=== PATIENT | male | born 1990 | race Caucasian/White ===

== ENCOUNTER 2020-09-19 22:05 | Emergency (ER) | payer MEDICAID, SELFPAY ==
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
--- NOTE | 2020-09-19 22:06 | PC.NURSE ---
back board removed. CXR done in room. C-collar remains in place. SL placed in (R) AC. 2nd liter of IVF started. ST on the monitor with strong pulse. will take to CT. respiratory therapist bagging patient. ok to put on vent per .
--- NOTE | 2020-09-19 22:10 | PC.NURSE ---
PEA on monitor. HR 120 but no carotid or femoral pulse per Dr. Herrera. CPR started. EPI given x 1. SL placed in (R) hand. 3rd liter of fluid started. BP 58/40. blood bank notified. [facility] staff in room. will attempt to fly patient to trauma center. Dr. Charles and Dr. Herrera present.
--- NOTE | 2020-09-19 22:12 | PC.NURSE ---
pulse check. ST 120's with 2+ pulse. ROSC achieved. BP 188/100. [facility] in room. patient prepared for transport. Dr. Herrera speaking with [facility].
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
[2020-09-19 22:21] LABS: Alveolar/Arterial O2 Gradient 478.5 mmHg; Base Excess ABG -12.4 mEq/l (+/-2.0); Carboxyhemoglobin 0.3 % THb (0-2.0); Fractional Inspired Oxygen 100 %; HCO3 ABG 20.2 mEq/l (22.0-26.0); Methemoglobin ABG 0.4 %THb (0-1.5); Oxygen Content ABG 18.3 %vol (16.0-22.0); Oxygen Saturation ABG 97.6 % (95.0-100.0); Oxyhemoglobin 96.6 % THb (90.0-100.0); PO2 ABG 151.2 mmHg (80.0-100.0); PO2 FiO2 Ratio Arterial Blood 1.51 %; Reduced Hemoglobin 2.7 %THb (0-5.0); Total Hemoglobin 13.3 g/dL (12.0-18.0)
[2020-09-19 22:22] LABS: pH ABG 7.003 (7.350-7.450)
[2020-09-19 22:23] LABS: Device AMBU BAG; Modified Allen's Test Pass; PCO2 ABG 83.3 mmHg (35.0-45.0); Site Drawn LEFT RADIAL
--- NOTE | 2020-09-19 22:30 | PC.NURSE ---
patient released to care of EMS staff for flight to [facility]. supercharger mechanic called [facility]. will fax patient's chart when able. patient's family notified by wash house worker Leandra. patient's belongings placed in brown sack and placed at nurses desk.
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
--- NOTE | 2020-09-19 23:05 | PC.NURSE ---
patient's chart faxed to [facility].
== END 2020-09-19 22:35 | disposition short-term general hospital (02) ==
LOC: ANHED 22:21
PROVIDERS: Emergency Provider Emergency Medicine
DX: S11.90XA Unspecified open wound of unspecified part of neck, initial encounter (principal); I46.8 Cardiac arrest due to other underlying condition; Y24.9XXA Unspecified firearm discharge, undetermined intent, initial encounter
CPT/HCPCS: 36600; 82375; 82805; 83050; 92950; 99285; J0171; J7030; J7060; J7120